=== PATIENT | male | born 1985 | race Two or more races ===

== ENCOUNTER 2025-02-01 08:12 | Emergency (ER) | payer BC, SELFPAY ==
[2025-02-01 08:12] VITALS: BMI 34.7
[2025-02-01 08:28] VITALS: BP 153/99; PULSE 99; RESP 17; TEMP 36.9; O2SAT 96
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
--- NOTE | 2025-02-01 08:43 | EDNOTE_ITS ---
<Statement entered by Erlinda Cantor MD - 02/01/25 11:50> As co-signing physician, I was present and available for consult prn. I concur with the plan and care as documented by the midlevel provider. ED Headache RME/HPI General Chief Complaint: Headache Stated Complaint: HEADACHE x 5 DAYS Time Seen by Provider: 02/01/25 08:17 Source: patient Arrival date/time: 02/01/25 08:12 39-year-old male with a history of migraines presents to the emergency room with a chief complaint of a headache x 5 days Mode of arrival: ambulatory Limitations: no limitations Related Data Allergies Allergy/AdvReac Type Severity Reaction Status Date / Time No Known Allergies Allergy Verified 02/01/25 08:14 Review of Systems Review of Systems Systems Reviewed: All systems reviewed, normal except as documented Constitutional Constitutional: Reports system reviewed and no additional complaints, except as documented, Denies fatigue, Denies fever(s), Reports headache(s) and Denies weakness Eyes Eyes: Reports system reviewed and no additional complaints, except as documented, Denies blurry vision and Denies change in vision ENT Ears, Nose, Mouth, and Throat: Reports system reviewed and no additional complaints, except as documented, Denies otalgia, Reports headache(s), Denies nasal congestion, Denies throat swelling and Denies vertigo Cardiovascular Cardiovascular: Reports system reviewed and no additional complaints, except as documented, Denies chest pain, Denies dyspnea and Denies dyspnea on exertion Respiratory Respiratory: Reports system reviewed and no additional complaints, except as documented, Denies chest congestion, Denies cough, Denies dyspnea, Denies dyspnea on exertion and Denies wheezing Gastrointestinal Gastrointestinal: Reports system reviewed and no additional complaints, except as documented, Denies abdominal pain, Denies cramping, Denies nausea and Denies vomiting Genitourinary Genitourinary: Reports system reviewed and no additional complaints, except as documented, Denies dysuria and Denies hematuria Musculoskeletal Musculoskeletal: Reports system reviewed and no additional complaints, except as documented and Denies back pain Integumentary/Breasts Skin/Breast: Reports system reviewed and no additional complaints, except as documented and Denies wounds Neurologic Neurologic: Reports system reviewed and no additional complaints, except as documented, Denies confusion, Reports headache(s), Denies lack of coordination, Denies vertigo and Denies weakness Psychiatric Psychiatric: Reports system reviewed and no additional complaints, except as documented, Denies anxiety, Denies confusion, Denies depression, Denies paranoia, Denies suicidal ideation and Denies tactile hallucinations Endocrine Endocrine: Reports system reviewed and no additional complaints, except as documented and Denies fatigue Hematologic/Lymphatic Hematologic/Lymphatic: Reports system reviewed and no additional complaints, except as documented and Denies lymphadenopathy Allergic/Immunologic Allergic/Immunologic: Reports system reviewed and no additional complaints, except as documented, Denies throat swelling, Denies urticaria and Denies wheezing Past Medical History Social History SMOKING STATUS: Never smoker ED Exam General Limitations: Present no limitations General appearance: Present alert and in no apparent distress Head Head exam: Present atraumatic, normocephalic and normal inspection Eye Eye exam: Present normal appearance, PERRL and EOMI ENT ENT exam: Present normal exam, normal oropharynx and mucous membranes moist Neck Neck exam: Present normal inspection, full ROM and trachea midline Chest Chest inspection: Present normal inspection and symmetric chest wall rise Respiratory Respiratory exam: Present normal lung sounds bilaterally; Absent respiratory distress, wheezes, stridor or accessory muscle use Cardiovascular Cardiovascular exam: Present regular rate, normal rhythm and normal heart sounds Abdominal Exam Abdominal exam: Present soft and normal bowel sounds Extremities Exam Extremities exam: Present normal inspection and full ROM Back Exam Back exam: Present normal inspection and full ROM Neurological Exam Neurological exam: Present alert, oriented X3, CN II-XII intact, normal gait and reflexes normal Expanded Neurological Exam Patient oriented to: Present person, place and time Speech: Present fluid speech Cerebellar function: Present normal gait Motor strength - LUE: 5/5 Motor strength - RUE: 5/5 Motor strength - LLE: 5/5 Motor strength - RLE: 5/5 Coma scale eye opening: spontaneous Coma scale motor response: obeys commands Coma scale verbal response: oriented Coma scale total: 15 Psychiatric Psychiatric exam: Present normal affect and normal mood Skin Skin exam: Present warm, dry, intact and normal color Course Quality Measures none Orders Category Date Time Status CT head/brain wo con Stat Exams 02/01/25 10:26 Completed XR thoracic spine 3V Stat Exams 02/01/25 08:33 Completed DiphenhydrAMINE [Benadryl] Med 02/01/25 08:33 Discontinued 25 mg PO X1 ONE Ketorolac Inj [Toradol Inj] Med 02/01/25 08:33 Discontinued 30 mg IM X1 ONE Metoclopramide [Reglan] Med 02/01/25 08:33 Discontinued 10 mg PO X1 ONE Vital Signs Vital signs: Vital Signs Temperature 98.4 F 02/01/25 08:28 Pulse Rate 99 02/01/25 08:28 Respiratory Rate 17 02/01/25 08:28 Blood Pressure 153/99 H 02/01/25 08:28 Pulse Oximetry (%) 96 02/01/25 08:28 Oxygen Delivery Method Room Air 02/01/25 08:28 Headache MDM Narrative MDM Narrative:: 39-year-old male with a history of migraines presents to the emergency room with a chief complaint of a headache x 5 days Patient is hemodynamically stable and in no apparent distress Neurological examination is within normal limits. Pupils are PERRLA EOMs are intact the patient is a GCS of 15 alert and oriented x 3 Patient is complaining of a right sided headache x 5 days. Patient has a history of migraines and states a similar pain Medication was given and the patient was reevaluated in 1 hour with no improvement to the patient's symptoms. Patient states his headache is getting worse. A CT scan of the head and brain was completed and was negative for any acute findings. During reevaluation after the patient CT patient states his symptoms have actually decreased and gotten a lot better. Patient's x-ray of his thoracic spine shows some scoliosis the patient was educated that he will need to follow-up with primary care provider regarding his migraines as well as his scoliosis of his spine Patient was discharged and educated to follow-up with primary care provider in the next 24 to 48 hours and return to the emergency room for any evidence of worsening signs or symptoms Patient data External records reviewed:: [facility] previous records Clinical information provided by:: patient Social determinants that could affect healthcare access:: none Patient has the following chronic illnesses:: Migraines How is presenting disease/condition affected by chronic disease/condition?: caused by Evaluation data The following diagnostics were reviewed and interpreted by me:: lab results and radiology exam(s) Lab and/or radiology exams considered but not ordered:: Labs and radiology exams considered and ordered Interpretation Summary: N/A Medications / Prescriptions Medications or Prescriptions considered but not ordered:: Medication given Medication administrations:: Medication Administration History Discontinued Medications Diphenhydramine HCl (Diphenhydramine 25 Mg Capsule) 25 mg PO X1 ONE Stop: 02/01/25 08:34 Last Admin: 02/01/25 09:20 Dose: 25 mg Documented By: Ketorolac Tromethamine (Ketorolac Inj 60 Mg/2 Ml Vial) 30 mg IM X1 ONE Stop: 02/01/25 08:34 Last Admin: 02/01/25 09:21 Dose: 30 mg Documented By: Metoclopramide HCl (Metoclopramide 5 Mg Tablet) 10 mg PO X1 ONE Stop: 02/01/25 08:34 Last Admin: 02/01/25 09:20 Dose: 10 mg Documented By: Medication given Consultations Consultation(s) initiated? (list below): No Diagnosis Differential diagnosis headache: migraine, tension headache, headache and sinusitis Most likely diagnosis given after review of the tests above:: Headache Admission Indicated Admission indicated?: not indicated Admission Request Was there a request for admission?: No Disposition Plan Disposition Plan: Discharge Discharge Attestation Discharge Attestation: The patient and all family members were given an opportunity to ask questions and understood the discharge instructions. Discharge instructions specifically effects, indications for sooner follow up or return to the emergency department, and the expected course of current diagnosis. Patient condition: Stable Discharge Plan Plan Patient Disposition: HOME (Self Care) Discharge Disposition comment: Stable Problem List Clinical Impression: Headache, Levoscoliosis of thoracic spine Patient/Caregiver Discharge Instructions Education Materials: Self-Care for Headaches Additional Instructions: Please follow-up with your primary care provider in the next [address] of your head and brain was negative for any acute findings Your x-ray showed some thoracic levoscoliosis. Please follow-up with your primary care provider for further management. For any evidence of worsening signs or symptoms return to the emergency room immediately Print Language: Maori Stand Alone Forms: Cyndy Award Info., Work/School Release, Patient Portal Info Letter PA/TEDDY Supervising Physician PA/TEDDY Supervising Physician: Dr. CANTOR
[2025-02-01] MEDS: METOCLOPRAMIDE 5 MG TABLET 10 MG PO (09:20)
[2025-02-01] MEDS: KETOROLAC INJ 60 MG/2 ML VIAL 30 MG IM (09:21)
--- NOTE | 2025-02-01 10:26 | XR_ITS ---
Examination: CT brain head without contrast. 2-D sagittal coronal reconstructions Date and time of exam:February 01 mm thousand 25, 1030 hours INDICATIONS: Onset generalized head pain and dizziness beginning 5 days ago CTDI: vol (mGy):53.5 DLP: (mGycm):1075 Technique: Multiple CT axial sections of the brain have been obtained, 5 mm slice thickness. Contrast has not been administered. 2-D sagittal, coronal reconstructions have been obtained Low dose protocols were performed. One or more of the following dose reduction techniques were used; automated exposure control, adjustment of the mA and/or KV according to patient size, use of iterative reconstruction technique. Findings: No significant ventricular enlargement. Intra-axial or extra-axial hemorrhage density is not seen. No mass effect or midline shift Basal cisterns are not remarkable. Fourth ventricle is midline. Cranial vault intact. Impression: Negative for acute hemorrhage, mass effect or midline shift Advise clinical correlation follow-up accordingly
== END 2025-02-01 12:52 | disposition home or self-care (01) ==
PROVIDERS: Emergency Provider Nurse Practitioner Family
DX: M41.9 Scoliosis, unspecified (principal); R51.9 Headache, unspecified; R42 Dizziness and giddiness
CPT/HCPCS: 70450; 72072; 96372; 99284; J1885; A9270